=== PATIENT | female | born 1980 | race Two or more races ===

== ENCOUNTER 2017-06-26 21:55 | Emergency (ER) | payer OTHER ==
[~2017-06-26] VITALS: Ht 162.6 cm; Wt 63.5 kg
--- NOTE | 2017-06-26 22:05 | NUR ---
[employer] at bedside talking with pt.
--- NOTE | 2017-06-26 22:10 | NUR ---
pt bib RA 909 s/p wrist injury. pt aaox4. able to speak in clear sentences and able to verbalize needs. pt in no acute distress.
--- NOTE | 2017-06-26 23:55 | NUR ---
pt ambulated to bathroom and back to bed with steady gait, in no acute distress.
--- NOTE | 2017-06-27 01:30 | NUR ---
Patient is resting comfortably in bed with eyes closed, no acute distress.
--- NOTE | 2017-06-27 04:03 | NUR ---
Patient is resting comfortably in bed with eyes closed, in no acute distress
[2017-06-27 06:08] VITALS: BP 115/75
--- NOTE | 2017-06-27 06:10 | NUR ---
Patient discharged to home in stable conditon. Written and verbal after care instructions given. Patient verbalizes understanding of instructions. Patient walked out of ER with steady gait.
== END 2017-06-27 06:12 | disposition home or self-care (01) ==
LOC: ER 21:56
DX: S63.501A Unspecified sprain of right wrist, initial encounter (principal); F10.129 Alcohol abuse with intoxication, unspecified; Y08.89XA Assault by other specified means, initial encounter; Y92.89 Other specified places as the place of occurrence of the external cause; Y93.89 Activity, other specified; Y99.8 Other external cause status
CPT/HCPCS: 73110; A4663

== ENCOUNTER 2018-01-09 22:02 | Emergency (ER) | payer OTHER ==
--- NOTE | 2018-01-09 23:30 | NUR ---
CALLED FOR PT NO ANSWER LWBT
== END 2018-01-09 23:30 | disposition left against medical advice (07) ==
LOC: ER 22:04
DX: Z53.21 Procedure and treatment not carried out due to patient leaving prior to being seen by health care provider (principal)

== ENCOUNTER 2018-01-10 22:15 | Emergency (ER) | payer OTHER ==
[~2018-01-10] VITALS: Ht 162.6 cm; Wt 63.5 kg
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
[2018-01-10] MEDS ORDERED: ONDANSETRON ODT 4 MG TAB.RAPDIS SL ONE (22:30)
[2018-01-10 22:40] LABS: BASOPHILS % (AUTO) 0.7 % (0.0-2.0); EOSINOPHILS % (AUTO) 0.5 % (0.0-7.0); HEMATOCRIT 34.9 % (31.2-41.9); HEMOGLOBIN 11.8 g/dL (10.9-14.3); LYMPHOCYTES # (AUTO) 1.8 K/uL (20.0-40.0); LYMPHOCYTES % (AUTO) 42.8 % (20.5-51.5); MEAN CORPUSCULAR HEMOGLOBIN 33.4 uug (24.7-32.8); MEAN CORPUSCULAR HGB CONC 34 g/dL (32.3-35.6); MEAN CORPUSCULAR VOLUME 98.7 fL (75.5-95.3); MONOCYTES # (AUTO) 0.4 K/uL (2.0-10.0); MONOCYTES % (AUTO) 8.8 % (0.0-11.0); NEUTROPHILS % (AUTO) 47.2 % (38.5-71.5); PLATELET COUNT (AUTO) 203 K/uL (179-408); RED BLOOD CELL COUNT(AUTO) 3.54 MIL/uL (3.63-4.92); WHITE BLOOD COUNT (AUTO) 4.3 K/uL (3.8-11.8)
[2018-01-10] MEDS ORDERED: ONDANSETRON ODT 4 MG TAB.RAPDIS ONE (22:40)
[2018-01-10 22:46] LABS: *URINE HCG, QUAL NEGATIVE (NEGATIVE)
[2018-01-10 22:54] LABS: CARBON DIOXIDE 24 mmol/L (21-32); CHLORIDE 105 mmol/L (98-107); CREATININE 0.7 mg/dL (0.6-1.3); ETHANOL 351 MG/DL (0-0); GLUCOSE 104 mg/dL (74-106); POTASSIUM 3.8 mmol/L (3.5-5.1); UREA NITROGEN, BLOOD 8 mg/dL (7-18)
[2018-01-10 22:59] LABS: ALANINE AMINOTRANSFERASE 39 U/L (14-59); ALKALINE PHOSPHATASE 67 U/L (50-136); ASPARTATE AMINOTRANSFERASE 39 U/L (15-37); BILIRUBIN,DIRECT 0.1 mg/dL (0.0-0.2); BILIRUBIN,TOTAL 0.3 mg/dL (0.2-1.0); TOTAL PROTEIN, SERUM 7.1 g/dL (6.4-8.2)
[2018-01-10 23:01] LABS: ACETAMINOPHEN < 2.0 ug/mL (10-30)
[2018-01-10 23:02] LABS: *AMPHETAMINE, URINE NEGATIVE (NEGATIVE); *BARBITURATE, URINE NEGATIVE (NEGATIVE); *CANNABINOID, URINE NEGATIVE (NEGATIVE); *COCCAINE, URINE NEGATIVE (NEGATIVE); *OPIATE, URINE NEGATIVE (NEGATIVE); *PHENCYCLIDINE SCREEN,URINE NEGATIVE (NEGATIVE)
--- NOTE | 2018-01-11 00:05 | NUR ---
PATIENT SLEEPING ON GURNY IN ROOM WITH NO DISTRESS NOTED
--- NOTE | 2018-01-11 06:10 | NUR ---
PATIENT ABLE TO AMBULATE AROUND UNIT WITH STEADY GAIT. SPEAKING WITH CLEAR SPEECH. PATIENT A/OX4 AND TOLERATING PO INTAKE WITH NO N/V NOTED
--- NOTE | 2018-01-11 06:19 | NUR ---
Patient discharged to home in stable conditon. Written and verbal after care instructions given. Patient verbalizes understanding of instructions. WALKED OUT OF ER WITH STEADY GAIT WITH NO DISTRESS NOTED
[2018-01-11 06:20] VITALS: BP 120/60
== END 2018-01-11 06:23 | disposition home or self-care (01) ==
LOC: ER 22:16
DX: F10.129 Alcohol abuse with intoxication, unspecified (principal); Z59.0 Homelessness
CPT/HCPCS: 36415; 80307; 84703; 85025; A4663; G0480; G0480-TC; Q0162

== ENCOUNTER 2018-01-11 23:27 | Emergency (ER) | payer OTHER ==
--- NOTE | 2018-01-11 23:52 | NUR ---
Patient did not want to be triaged or be seen by ERMD. Patient is A/Ox3,speaking with clear speech. Came in requesting to be admitted to [facility] not to be checked into ER. Patient left with family member
== END 2018-01-11 23:54 | disposition left against medical advice (07) ==
LOC: ER 23:29
DX: Z53.21 Procedure and treatment not carried out due to patient leaving prior to being seen by health care provider (principal)

== ENCOUNTER 2018-07-17 22:45 | Inpatient (IN) | payer OTHER ==
[~2018-07-17] VITALS: Ht 160 cm; Wt 59.4 kg
--- NOTE | 2018-07-17 19:40 | NUR ---
RECEIVED PATIENT IN BED AWAKE BUT SLIGHTLY DROWSY, NO SOB NO CHEST PAIN, NO COMPLAIN OF PAIN, NO S/S OF ANXIETY AT THIS TIME. PATIENT USES PHONE TO CALL HER BOYFRIEND WITH SITTER SUPERVISION. PHONE WAS TAKEN OUT OF THE ROOM AFTER USE BY PATIENT.
--- NOTE | 2018-07-17 22:45 | NUR ---
Pt bib RA 90. Pt is ETOH and ingested 30 Librium tablets per paramedics for possible suicide attempt. Pt a/o x4 but with slurred speech. Pt is on monitor, V/S stable. Denies suicide at this time.
--- NOTE | 2018-07-17 22:45 | NUR ---
Will contine to onitor. Safe environment implemented.
[2018-07-17] MEDS ORDERED: [UNRECOGNIZED DRUG - REMARK] (22:56)
[2018-07-17] MEDS ORDERED: [UNRECOGNIZED DRUG - REMARK] (22:56)
[2018-07-17] MEDS ORDERED: CHLO25CA22 PO (23:03)
--- NOTE | 2018-07-17 23:15 | NUR ---
ONESIMO at bedside for interrogation
[2018-07-17 23:25] LABS: CARBON DIOXIDE 27 mmol/L (21-32); CHLORIDE 101 mmol/L (98-107); CREATININE 0.8 mg/dL (0.6-1.3); GLUCOSE 94 mg/dL (74-106); POTASSIUM 3.3 mmol/L (3.5-5.1); UREA NITROGEN, BLOOD 11 mg/dL (7-18)
[2018-07-17 23:30] LABS: BASOPHILS % (AUTO) 0.5 % (0.0-2.0); EOSINOPHILS % (AUTO) 0.6 % (0.0-7.0); HEMATOCRIT 40.3 % (31.2-41.9); HEMOGLOBIN 13.8 g/dL (10.9-14.3); LYMPHOCYTES # (AUTO) 1.5 K/uL (20.0-40.0); LYMPHOCYTES % (AUTO) 27.2 % (20.5-51.5); MEAN CORPUSCULAR HEMOGLOBIN 33.8 uug (24.7-32.8); MEAN CORPUSCULAR HGB CONC 34 g/dL (32.3-35.6); MEAN CORPUSCULAR VOLUME 98.9 fL (75.5-95.3); MONOCYTES # (AUTO) 0.5 K/uL (2.0-10.0); NEUTROPHILS # (AUTO) 3.4 K/uL (1.8-8.9); NEUTROPHILS % (AUTO) 62.7 % (38.5-71.5); PLATELET COUNT (AUTO) 259 K/uL (179-408); RED BLOOD CELL COUNT(AUTO) 4.08 MIL/uL (3.63-4.92); WHITE BLOOD COUNT (AUTO) 5.4 K/uL (3.8-11.8)
[2018-07-17 23:39] LABS: ACETAMINOPHEN < 2.0 ug/mL (10-30); ALANINE AMINOTRANSFERASE 65 U/L (14-59); ALKALINE PHOSPHATASE 72 U/L (50-136); ASPARTATE AMINOTRANSFERASE 62 U/L (15-37); BILIRUBIN,DIRECT 0.1 mg/dL (0.0-0.2); BILIRUBIN,TOTAL 0.4 mg/dL (0.2-1.0); TOTAL PROTEIN, SERUM 8.4 g/dL (6.4-8.2)
[2018-07-17 23:44] LABS: ETHANOL 128 MG/DL (0-0)
[2018-07-18] VITALS (8 sets, daily range): BP systolic 91–124; BP diastolic 40–76
[2018-07-18] LABS: *BILIRUBIN,URIN NEGATIVE (NEGATIVE); *BLOOD, URINE NEGATIVE (NEGATIVE); *CLARITY,URINE CLEAR (CLEAR); *COLOR,URINE STRAW (YELLOW); *KETONES,URINE NEGATIVE (NEGATIVE); *UROBILINOGEN,URINE 0.2 E.U./dl (NORMAL); LEUKOCYTE ESTERASE ,URINE NEGATIVE (NEGATIVE); NITRITE, URINE NEGATIVE (NEGATIVE); UGLUCOSE NEGATIVE (NEGATIVE)
[2018-07-18 00:02] LABS: BACTERIA,URINE NONE SEEN /HPF (NONE SEEN); RBC,URINE NONE SEEN /HPF (0-3); SQUAMOUS EPITHELIAL CELL,UR NONE SEEN /HPF (NONE SEEN); WBC,URINE NONE SEEN /HPF (0-3)
[2018-07-18] MEDS ORDERED: IV NORMAL SALINE 1000 ML BAG IV ONE (00:15)
[2018-07-18 00:19] LABS: *AMPHETAMINE, URINE POSITIVE (NEGATIVE); *BARBITURATE, URINE NEGATIVE (NEGATIVE); *CANNABINOID, URINE NEGATIVE (NEGATIVE); *COCCAINE, URINE NEGATIVE (NEGATIVE); *OPIATE, URINE NEGATIVE (NEGATIVE); *PHENCYCLIDINE SCREEN,URINE NEGATIVE (NEGATIVE)
--- NOTE | 2018-07-18 00:23 | NUR ---
Patient sleeping at this time, easily arousable via verbal and tactile stimuli. Boyfriend at bedside. Will continue to monitor closely.
[2018-07-18] MEDS: POTASSIUM CHLORIDE 50 ML IV SCH ×4 (00:44→07:04)
[2018-07-18] MEDS ORDERED: ACETAMINOPHEN 650 MG SUPP.RECT RC PRN (02:15)
[2018-07-18] MEDS ORDERED: IV D5/ 0.9% NACL 1,000 ML IV PRN (02:15)
[2018-07-18] MEDS ORDERED: INSULIN REGULAR, HUMAN 300 UNIT/3 ML VIAL SQ PRN ×2 (02:15→19:00)
[2018-07-18] MEDS ORDERED: Z GUARD REMEDY PASTE 57 GM TUBE TOP PRN (02:15)
[2018-07-18] MEDS ORDERED: MVI ADULT 10 ML VIAL=1 AMP 10 ML, FOLIC ACID 1 MG, THIAMINE HCL INJ 100 MG, MAGNESIUM S... IV PRN ×10 (02:15→10:00)
[2018-07-18] MEDS ORDERED: DEXTROSE 50% 50 ML DISP.SYRIN IV PRN ×2 (02:15→19:00)
[2018-07-18] MEDS ORDERED: ONDANSETRON 4 MG/2 ML VIAL IV PRN (02:15)
[2018-07-18] MEDS ORDERED: LORAZEPAM 2 MG/1 ML VIAL IV PRN (02:15)
--- NOTE | 2018-07-18 02:19 | NUR ---
Pt. admitted to CCU , under care of Roddy SHANNON Belongs List completed -1st bag of KCl start time: 43 end time: 137 -2nd bag of KCl start time: 138 end time: not done, continued by inpatient RN -3rd and 4th bag of KCl endorsed to and will be administered by inpatient RN
--- NOTE | 2018-07-18 02:40 | NUR ---
AT INFORMED THAT PT REFUSED TO BE HOOKED UP TO MONITOR AND PULLING OUT IV. AT BS TALKING TO PT.
--- NOTE | 2018-07-18 03:00 | NUR ---
PET TEAM HERE TO EVALUATE PT.
[2018-07-18] MEDS: LORAZEPAM 2 MG/1 ML VIAL IV PRN ×3 (05:07→21:41)
--- NOTE | 2018-07-18 06:00 | NUR ---
AGREED TO HAVE IV STARTED AFTER ALL, PLEASANT AND COOPERTIVE, ALLOWED HER TO VOICE ANY CONCERNS.SEEMED MUCH MORE AT EASE.IS AWARE THAT SHE DESERVES AND NEEDS TO GET SOME HELP.
[2018-07-18 06:01] LABS: BASOPHILS % (AUTO) 0.6 % (0.0-2.0); EOSINOPHILS # (AUTO) 0.1 K/uL (0.0-0.7); EOSINOPHILS % (AUTO) 1.2 % (0.0-7.0); HEMATOCRIT 36.5 % (31.2-41.9); HEMOGLOBIN 12.6 g/dL (10.9-14.3); LYMPHOCYTES # (AUTO) 1.4 K/uL (20.0-40.0); LYMPHOCYTES % (AUTO) 33.3 % (20.5-51.5); MEAN CORPUSCULAR HEMOGLOBIN 34.5 uug (24.7-32.8); MEAN CORPUSCULAR HGB CONC 35 g/dL (32.3-35.6); MEAN CORPUSCULAR VOLUME 99.7 fL (75.5-95.3); MONOCYTES # (AUTO) 0.4 K/uL (2.0-10.0); MONOCYTES % (AUTO) 8.7 % (0.0-11.0); NEUTROPHILS # (AUTO) 2.4 K/uL (1.8-8.9); NEUTROPHILS % (AUTO) 56.2 % (38.5-71.5); PLATELET COUNT (AUTO) 231 K/uL (179-408); RED BLOOD CELL COUNT(AUTO) 3.66 MIL/uL (3.63-4.92); WHITE BLOOD COUNT (AUTO) 4.2 K/uL (3.8-11.8)
[2018-07-18 06:16] LABS: BILIRUBIN,TOTAL 0.2 mg/dL (0.2-1.0); CREATININE 0.8 mg/dL (0.6-1.3); PHOSPHOROUS 3.1 mg/dL (2.5-4.9); POTASSIUM 3.6 mmol/L (3.5-5.1); TOTAL PROTEIN, SERUM 6.7 g/dL (6.4-8.2)
[2018-07-18 06:20] LABS: THYROID STIMULATING HORMONE 67.689 mIU/mL (0.358-3.740)
[2018-07-18] MEDS: BLOOD SUGAR DIAGNOSTIC 1 EACH STRIP VI SCH ×4 (06:56→23:38)
[2018-07-18] MEDS: PANTOPRAZOLE SODIUM 40 MG VIAL IV SCH (08:08)
[2018-07-18] MEDS ORDERED: MAGNESIUM SULFATE/D5W 100 ML IV SCH (12:00)
[2018-07-18] MEDS ORDERED: LEVOTHYROXINE SODIUM 100 MCG VIAL IV ONE (12:26)
[2018-07-18] MEDS ORDERED: THIAMINE HCL INJ 100 MG in IV DEXTROSE 5% 50 ML IV SCH (13:00)
[2018-07-18] MEDS ORDERED: MVI ADULT 10 ML VIAL=1 AMP 10 ML in IV D5/ 0.9% NACL 1,000 ML IV PRN (14:00)
[2018-07-18] MEDS ORDERED: FOLIC ACID 1 MG in IV DEXTROSE 5% 50 ML IV SCH (14:00)
--- NOTE | 2018-07-18 16:17 | NUR ---
Dr. Garcia here to see pt. Full report given. stated that pt okay to downgrade to telemetry status.
--- NOTE | 2018-07-18 18:23 | NUR ---
Full SBAR report given to CONG Valdovinos.
--- NOTE | 2018-07-18 18:35 | NUR ---
Transferred pt to room 209-T with 1:1 sitter via wheelchair. All belongings reviewed and brought with the pt. Pt stable and nad noted upon transfer.
--- NOTE | 2018-07-18 18:36 | NUR ---
RECEIVED PATIENT FROM CCU 38 YEARS OLD FEMALE BY W/CHAIR TO ROOM 209 PLACED INTO BED FIXWS AND MDE COMFORTABLE PATIENT IS ALERT AND ORIENTED AT THIS TIME ABLE TO AMBULATE TO THE BATHROOM TO VOID.HEPLOCK ON HER LEFT AC REMAINS INTACT RECONNECTED TO THE IVF BABANA BAG ORDERED.ALERT AND ORIENTED ABLE TO VERBALLY RESPOND DID NOT VERBALISE SUICIDAL INTENT AT THIS TIME HAS A SITTER AT HER BEDSIDE FOR SAFETY WILL CONTINUE TO PROVIDE SAFE AND THERAPEUTIC ENVIRONMENT AT ALL TIMES.
[2018-07-18] MEDS ORDERED: QUETIAPINE FUMARATE 25 MG TABLET PO SCH (21:00)
--- NOTE | 2018-07-18 21:41 | NUR ---
PATIENT AWAKE, NOTED WITH ANXIETY EPISODES, RESTLESS WHILE IN BED, PATIENT HAS MULTIPLE REQUEST, TRIED TO ATTEND ALL NEEDS, WANTED HER PAJAMAS BUT TOLD PATIENT THAT SHE CANNOT HAVE IT DUE TO DRAW STRINGS ON ITS WAIST AREA AND STRINGS CANNOT BE REMOVED, GIVEN PANTS WITH ELASTIC WAIST BAND. PATIENT COMPLAIN OF STIFF MUSCLE ON BACK AND WANTED TO RELAX, GIVEN ATIVAN FOR ANXIETY. WITH NO ADVERSE REACTION NOTED, CONT ON 1;1 SITTER FOR SAFETY.
[2018-07-18] MEDS: HYDROCODONE/APAP 5-325MG TABLET PO PRN (23:34)
--- NOTE | 2018-07-18 23:40 | NUR ---
PATIENT COMPLAIN OF GEN BODY PAIN, AND TRIED TO GIVE NARCO PATIENT REFUSED THE MEDICATION, PATIENT WENT BACK TO BED, WILL CONT TO MONITOR.
[2018-07-19 00:17] VITALS: BP 107/61
--- NOTE | 2018-07-19 04:37 | NUR ---
PATIENT SLEPT FOR 10 HRS, NO SOB NO CHEST PAIN, TELE MONITOR SINUS RHYTHM, ASSISTED WITH TOILETING, VOIDING WELL, NO CHEST CONGESTION NOTED, PATIENT BELONGINGS WAS PLACE ON CONTRABAND LOCKER, PATIENT ATE AND DRINK FAIRLY, NO FURTHER EPISODE OF ANXIETY NOTED, NO SEIZURE ACTIVITY NOTED, CONT ON 1;1 SITTER FOR SAFETY.
[2018-07-19 05:39] LABS: BASOPHILS % (AUTO) 0.5 % (0.0-2.0); EOSINOPHILS % (AUTO) 0.8 % (0.0-7.0); HEMATOCRIT 37.4 % (31.2-41.9); HEMOGLOBIN 12.7 g/dL (10.9-14.3); LYMPHOCYTES # (AUTO) 1.2 K/uL (20.0-40.0); LYMPHOCYTES % (AUTO) 23.3 % (20.5-51.5); MEAN CORPUSCULAR HEMOGLOBIN 33.9 uug (24.7-32.8); MEAN CORPUSCULAR HGB CONC 34 g/dL (32.3-35.6); MEAN CORPUSCULAR VOLUME 99.4 fL (75.5-95.3); MONOCYTES # (AUTO) 0.4 K/uL (2.0-10.0); MONOCYTES % (AUTO) 7.9 % (0.0-11.0); NEUTROPHILS # (AUTO) 3.4 K/uL (1.8-8.9); NEUTROPHILS % (AUTO) 67.5 % (38.5-71.5); PLATELET COUNT (AUTO) 213 K/uL (179-408); RED BLOOD CELL COUNT(AUTO) 3.76 MIL/uL (3.63-4.92)
[2018-07-19] MEDS: BLOOD SUGAR DIAGNOSTIC 1 EACH STRIP VI SCH ×2 (05:43→11:38)
[2018-07-19 05:50] VITALS: BP 96/67
[2018-07-19 05:54] LABS: BILIRUBIN,TOTAL 0.4 mg/dL (0.2-1.0); CREATININE 0.9 mg/dL (0.6-1.3); MAGNESIUM 2.2 mg/dL (1.8-2.4); PHOSPHOROUS 3.4 mg/dL (2.5-4.9); POTASSIUM 3.8 mmol/L (3.5-5.1); TOTAL PROTEIN, SERUM 6.2 g/dL (6.4-8.2)
[2018-07-19 06:04] LABS: THYROID STIMULATING HORMONE 78.038 mIU/mL (0.358-3.740)
--- NOTE | 2018-07-19 07:33 | NUR ---
RECEIVED PATIENT AWAKE ALERT AND ORIENTED DENIES PAIN OR DISCOMFORTS AT THIS TIME ALSO DENIES FEELIN SUICIDAL STATED TO ME THAT SHE SLEPT WELL LAST NITE REMAIN ON IVF ORDERED WITH NO S/S OF INFILTERATION ON SITE REMAIN ON HOLD WITH A ONE ON ONE SITTER FOR SAFETY WILL CONTINUE TO PROVIDE SAFE AND THERAPEUTIC ENVIRONMENT AT ALL TIMES.
[2018-07-19] MEDS: PANTOPRAZOLE SODIUM 40 MG VIAL IV SCH (08:03)
[2018-07-19] MEDS: FOLIC ACID 1 MG TABLET PO SCH (09:55)
[2018-07-19] MEDS: THIAMINE HCL 100 MG TABLET PO SCH (09:55)
[2018-07-19] MEDS: LEVOTHYROXINE SODIUM 50 MCG TABLET PO SCH (11:38)
[2018-07-19] MEDS ORDERED: LEVOTHYROXINE SODIUM 100 MCG VIAL IV ONE (11:45)
[2018-07-19 12:00] VITALS: BP 105/76
--- NOTE | 2018-07-19 12:15 | NUR ---
PATIENT DOES NOT WANT HER BLOOD SUGAR CHECKED ANYMORE BUT ALLOWED ME TO CHECK IT THIS LAST TIME SO I INFORMED DR LIMA WITH ORDERS TO STOP BLOOD SUGAR CHECKS AND INSULIN COVERAGE AND NOTED.
--- NOTE | 2018-07-19 14:20 | NUR ---
PATIENT SEEN AND EXAMINED BY DR RADFORD AND DR VELEZ WITH NO NEW ORDERS AT THIS TIME PATIENT REMAINS ON HOLD ORDERED WITH SAFETY PROVIDED WILL CONTINUE TO PROVIDE SAFE AND THERAPEUTIC ENVIRONMENT AT ALL TIMES.
[2018-07-19 16:00] VITALS: BP 110/67
[2018-07-19] MEDS: LORAZEPAM 2 MG/1 ML VIAL IV PRN (18:02)
--- NOTE | 2018-07-19 18:02 | NUR ---
PATIENT IS AT HER BREAKING POINT STATED FEEL VERY ANXIOUS AND SAD MEDICATED WITH ATIVAN ORDERED PATIENT STATED DOES NOT WANT TO BE HERE STATED SHE DOES NOT FEEL TAKEN CARED OF PATIENT REASSURED JAKI GUERRERO HAS A ONE ON ONE SITTER FOR HER SAFETY AND NEEDS AND HER BOY FRIEND HAS BEEN AT HER BEDSIDE FOR MORE THAT 5 HOURS TODAY AND IS STILL HERE.
--- NOTE | 2018-07-19 19:03 | NUR ---
PATIENT STATED FEELING BETTER AFTER TRICIA ATIVAN SHE IOS SMILING NOW AND IN BETTER SPIRITS WILL CONTINUE TO OBSERVE.
--- NOTE | 2018-07-19 19:20 | NUR ---
RECEIVED PT AWAKE, ALERT AND ORIENTEDX4. BOYFRIEND AT BEDSIDE. SITTER AT BEDSIDE FOR SAFETY. PT SHOWS NO SIGNS OF DISTRESS. IV INTACT. SAFETY AND COMFORT PROVIDED. WILL CONTINUE TO MONITOR.
[2018-07-19 20:14] VITALS: BP 106/78
[2018-07-19] MEDS ORDERED: QUETIAPINE FUMARATE 25 MG TABLET PO SCH (21:00)
[2018-07-20 00:03] VITALS: BP 121/66
[2018-07-20] MEDS: PANTOPRAZOLE SODIUM 40 MG TABLET.DR PO SCH (06:07)
[2018-07-20] MEDS: LEVOTHYROXINE SODIUM 50 MCG TABLET PO SCH (06:08)
[2018-07-20 06:34] LABS: BASOPHILS % (AUTO) 0.3 % (0.0-2.0); EOSINOPHILS % (AUTO) 0.6 % (0.0-7.0); HEMATOCRIT 37.8 % (31.2-41.9); HEMOGLOBIN 12.7 g/dL (10.9-14.3); LYMPHOCYTES # (AUTO) 1.6 K/uL (20.0-40.0); LYMPHOCYTES % (AUTO) 32.4 % (20.5-51.5); MEAN CORPUSCULAR HEMOGLOBIN 33.5 uug (24.7-32.8); MEAN CORPUSCULAR HGB CONC 34 g/dL (32.3-35.6); MEAN CORPUSCULAR VOLUME 99.5 fL (75.5-95.3); MONOCYTES # (AUTO) 0.6 K/uL (2.0-10.0); MONOCYTES % (AUTO) 12.1 % (0.0-11.0); NEUTROPHILS # (AUTO) 2.7 K/uL (1.8-8.9); NEUTROPHILS % (AUTO) 54.6 % (38.5-71.5); PLATELET COUNT (AUTO) 216 K/uL (179-408); WHITE BLOOD COUNT (AUTO) 4.9 K/uL (3.8-11.8)
--- NOTE | 2018-07-20 06:54 | NUR ---
PT SLEPT 3 HOURS. PT SHOWS NO SIGNS OF DISTRESS. SITTER AT BEDSIDE FOR SAFETY. PRESCRIBED MEDICATION GIVEN AND PT TOLERATED IT WELL.SAFETY AND COMFORT PROVIDED. WILL ENDORSE TO INCOMING NURSE FOR CONTINUITY OF CARE.
[2018-07-20 07:01] LABS: CREATININE 0.8 mg/dL (0.6-1.3); MAGNESIUM 2.2 mg/dL (1.8-2.4); PHOSPHOROUS 2.7 mg/dL (2.5-4.9); POTASSIUM 3.6 mmol/L (3.5-5.1)
--- NOTE | 2018-07-20 07:25 | NUR ---
RECEIVED PATIENT AWAKE ALERT DENIES PAIN OR DISCOMFORTS AT THIS TIME REMAIN ON ONE ON ONE SITTER FOR SAFETY DENIES SI AT THIS TIME WILL CONTINUE TO PROVIDE SAFE AND THERAPEUTIC ENVIRONMENT AT ALL TIMES
[2018-07-20] MEDS: MULTIVITAMINS,THERAPEUTIC TABLET PO SCH (08:41)
[2018-07-20] MEDS: THIAMINE HCL 100 MG TABLET PO SCH (08:41)
[2018-07-20] MEDS: FOLIC ACID 1 MG TABLET PO SCH (08:41)
[2018-07-20] MEDS ORDERED: QUETIAPINE FUMARATE 25 MG TABLET PO SCH ×2 (09:00→21:00)
--- NOTE | 2018-07-20 09:26 | NUR ---
PATIENT STATED WANTS TO SHOWER HAS TELE MD NOTIFIED STATED OK FOR PATIENT TO SHOWER AND TO DISCONTINUE TELE AND NOTED
[2018-07-20 10:21] VITALS: BP 105/48
[2018-07-20] MEDS: LORAZEPAM 2 MG/1 ML VIAL IV PRN ×2 (10:21→20:24)
[2018-07-20 11:30] VITALS: BP 126/63
--- NOTE | 2018-07-20 12:03 | NUR ---
DR RADFORD HERE TO SEE PATIENT WITH NEW ORDERS AND NOTED.
[2018-07-20] MEDS: DIVALPROEX 250 MG TABLET.DR PO SCH ×2 (12:15→16:26)
--- NOTE | 2018-07-20 14:30 | NUR ---
RESULTS FOR TSH IS [phone] RADFORD AND ALSO DR VELEZ WAS NOTIFIED WITH NO NEW ORDERS AT THIS TIME
[2018-07-20 15:59] VITALS: BP 122/70
[2018-07-20] MEDS: QUETIAPINE FUMARATE 25 MG TABLET PO SCH (16:27)
--- NOTE | 2018-07-20 17:19 | NUR ---
PER THE CLAY ROASTER NURSERY WORKER NO PLACEMENT AT THIS TIME.
--- NOTE | 2018-07-20 19:20 | NUR ---
Received patient awake in bed, not in any form of distress. Patient is alert and oriented x 4 and ambulatory. Patient has an IV access at the right antecubital vein, 20g to saline lock, patent and intact. Noted patient has a sitter at the bedside and is on 14day hold. Will continue to monitor.
[2018-07-20 20:16] VITALS: BP 111/69
[2018-07-20] MEDS ORDERED: QUETIAPINE FUMARATE 100 MG TABLET PO SCH (21:00)
[2018-07-20] MEDS ORDERED: QUETIAPINE FUMARATE 25 MG TABLET PO PRN (21:45)
[2018-07-20] MEDS ORDERED: LORAZEPAM 2 MG/1 ML VIAL IV ONE (21:45)
--- NOTE | 2018-07-20 22:00 | NUR ---
Noted patient had shoe laces in her room, which was taken and stored in contraband items locker in the unit.
--- NOTE | 2018-07-20 22:00 | NUR ---
Informed patient that her fiance cannot stay overnight per hospital policy, patient became upset with this because she claims she was informed this morning that her fiance can stay overnight. Reiterated that per casino cage supervisor we need to follow hospital policy. Patient became agitated and is verbalizing that she will leave the hospital. Called and spoke with Dr. Stevens and relayed above events, she ordered for 1 more dose of Ativan 1mg IV and seroquel 25mg po prn - noted and ordered.
--- NOTE | 2018-07-20 23:00 | NUR ---
Patient fell asleep. Bed in low position, side rails up x 2, call light within reach, bed alarm on. Sitter present at bedside. Will continue to monitor.
--- NOTE | 2018-07-21 06:21 | NUR ---
Patient slept 7 hours and 15 minutes. She still has an IV access at left antecubital vein. No recurrence of agitation. Attended all needs. Still has a sitter at bedside. Ensured safety and comfort.
[2018-07-21] MEDS: LEVOTHYROXINE SODIUM 100 MCG TABLET PO SCH (06:32)
[2018-07-21] MEDS: PANTOPRAZOLE SODIUM 40 MG TABLET.DR PO SCH (06:32)
[2018-07-21 06:40] VITALS: BP 86/53
[2018-07-21 07:10] VITALS: BP 110/52
--- NOTE | 2018-07-21 07:30 | NUR ---
PATIENT RECEIVED AWAKE ALERT ORIENTED SEEMS TO BE IN GOOD SPIRITS DENIES SUICIDAL INTENT.PATIENT HAS A SITTER FOR SAFETY.WILL CONTINUE TO OBSERVE AND PROVIDE SAFE AND THERAPEUTIC ENVIRONMENT AT ALL TIMES.
[2018-07-21] MEDS: CYANOCOBALAMIN 1,000 MCG TABLET PO SCH (08:28)
[2018-07-21] MEDS: LORAZEPAM 2 MG/1 ML VIAL IV PRN (08:28)
--- NOTE | 2018-07-21 08:28 | NUR ---
PATIENT IS GETTING VERY AGITATED AND RESTLESS REQUESTING FOR ATIVAN ADMINISTERED ORDERED PATIENT MADE COMFORTABLE NO SUICIDE INTENT AT THIS TIME.
[2018-07-21] MEDS: THIAMINE HCL 100 MG TABLET PO SCH (08:29)
[2018-07-21] MEDS: QUETIAPINE FUMARATE 25 MG TABLET PO SCH ×2 (08:29→16:04)
[2018-07-21] MEDS: DIVALPROEX 250 MG TABLET.DR PO SCH ×3 (08:29→16:04)
[2018-07-21] MEDS: FOLIC ACID 1 MG TABLET PO SCH (08:29)
[2018-07-21] MEDS: MULTIVITAMINS,THERAPEUTIC TABLET PO SCH (08:29)
--- NOTE | 2018-07-21 10:51 | NUR ---
PATIENT REQUESTED ME TO REMOVE HER IV HEPLOCK STATED THAT IT WAS BOTHERING HER SO IV SITE REMOVED AND PATIENT REFUSED TO HAVE A NEW ONE INSERTED OTIS SUPERINTENDENT SANITATION AWARE THAT PATIENT HAS NO IV SITE AT THIS TIME STATED OKAY TO USE OTHER ROUTE WHEN GIVING HER ATIVAN AWAITING FOR ORDERS.
[2018-07-21 11:00] VITALS: BP 109/53
--- NOTE | 2018-07-21 12:00 | NUR ---
DR RADFORD HERE TO SEE PATIENT AND PATIENT VERY UPSET THAT SHE WAS NOT RELEASING HER HOLD AND LETTING HER GO PER THE VEGETABLE TESTER THERE WAS AN INCIDENT WHERE PATIENT WAS VERY AGITATED ANXIOUS AND MADE REFERENCE THAT SHE WILL JUST GO AHEAD AND END THIS AND HAD THE CALL LIGHT SYSTEM IN HER HAND THIS WAS RELAYED TO THE PSYCHIATRIST PATIENT DENIED STATING OR MAKING ANY REFERENCE TO KILLING OR INJURING HERSELF VERY UPSET DEPRESSED LOW ENERGY WANTS TO BE ALLOWED TO GO HOME BUT DESTINATION IS STILL UNKNOWN.PATIENT REASSURED THAT THE COURTS WILL BE ABLE TO ACCESS AND DETERMINE IF THE HOLD STANDS OR NOT WILL CONTINUE TO OBSERVE PATIENT AND PROVIDE SAFE AND THERAPEUTIC ENVIRONMENT AT ALL TIMES
[2018-07-21] MEDS: ACETAMINOPHEN 325 MG TABLET PO PRN (15:07)
[2018-07-21 16:00] VITALS: BP 112/42
--- NOTE | 2018-07-21 16:51 | NUR ---
Social Work Note: Met with patient today who acknowledged she was anxious as she cannot drink here. She said that she had an argument with her mother and sisters and then went on an alcoholic binge. She is denying any current wish to harm herself. She admits to negative attention-seeking behavior and added " that is all I know how to do." She was in [facility] four years ago. She says her boyfriend visited last night and staff report she got very angry when they refused to allow him to stay the night. Call light cord was broken but client denies breaking this and added " I have no way of doing this." She admits she is not ready to stop drinking. She overdosed on Librium after she argued with her mother and sisters. She is upset that her relationship with her mother is conflictual but then owns that she created the rift. She admits she acts on her impulses and when she said " I will go and finish what I started" she was angry. Pt. says she was supposed to call [facility] but did not follow through. Patient was appreciative of supportive intervention offered by this mortgage or loan underwriter. Will await probable cause hearing as no accepting inpatient psychiatric facility will take her with probable cause hearing. No probable cause hearing date per Nick charge nurse. Courts were closed yesterday so no hearing date has been set as of time of writing.
--- NOTE | 2018-07-21 18:33 | NUR ---
RESTING IN BED SEEMS TO BE IN GOOD SPIRITS AT THIS TIME COMPLIANT WITH MEDICATIONS DENIES SUICIDAL THOUGHTS WILL CONTINUE TO OBSERVE AND PROVIDE SAFE AND THERAPEUTIC ENVIRONMENT AT ALL TIMES PATIENT CONTINUE TO BE ON ONE ON ONE SITTER OBSERVATION ON 14 DAY HOLD.
--- NOTE | 2018-07-21 19:25 | NUR ---
Received patient awake in bed, not in any form of distress. Patient is alert and oriented x 4 and ambulatory. Noted patient has a sitter at the bedside and is on 14day hold. Patient has visitor at bedside at this time. Patient appears calm and is cooperative at this time. Will continue to monitor.
[2018-07-21 20:05] VITALS: BP 113/63
[2018-07-21] MEDS ORDERED: QUETIAPINE FUMARATE 100 MG TABLET PO SCH (21:00)
--- NOTE | 2018-07-22 | NUR ---
Patient had a shower assisted by lizett. Patient states she does not feel sleepy at all and that she is still feeling a little bit anxious. Will administer Ativan 1mg prn dose.
[2018-07-22] MEDS: LORAZEPAM 1 MG TABLET PO PRN ×2 (00:15→14:17)
--- NOTE | 2018-07-22 01:30 | NUR ---
Noted patient stated that she feels sleepy but continues to talk and work around her room. Settled patient in the bed, noise and lights subdued to provide calming environment.
--- NOTE | 2018-07-22 02:30 | NUR ---
Noted patient still not asleep even after ativan prn dose. Patient states that she feels that she needs to move around still in her room. Will give seroquel prn dose.
--- NOTE | 2018-07-22 04:50 | NUR ---
Patient fell asleep. Continued to keep noise and lights subdued to provide calm environment.
[2018-07-22 06:00] VITALS: BP 100/58
--- NOTE | 2018-07-22 06:21 | NUR ---
Patient still currently asleep with the sitter at the bedside. Noted patient fell asleep just this morning, will await for her to wake up for the morning medications. If patient does not wake up yet, will endorse to morning shift nurse. Will continue to monitor.
[2018-07-22] MEDS: LEVOTHYROXINE SODIUM 100 MCG TABLET PO SCH (06:45)
[2018-07-22] MEDS: PANTOPRAZOLE SODIUM 40 MG TABLET.DR PO SCH (06:45)
[2018-07-22 07:10] VITALS: BP 113/50
[2018-07-22] MEDS: CYANOCOBALAMIN 1,000 MCG TABLET PO SCH (08:31)
[2018-07-22] MEDS: FOLIC ACID 1 MG TABLET PO SCH (08:31)
[2018-07-22] MEDS: DIVALPROEX 250 MG TABLET.DR PO SCH ×3 (08:32→16:31)
[2018-07-22] MEDS: THIAMINE HCL 100 MG TABLET PO SCH (08:32)
[2018-07-22] MEDS: QUETIAPINE FUMARATE 25 MG TABLET PO SCH ×2 (08:32→16:31)
[2018-07-22] MEDS: MULTIVITAMINS,THERAPEUTIC TABLET PO SCH (08:32)
[2018-07-22 09:29] LABS: BASOPHILS % (AUTO) 0.5 % (0.0-2.0); EOSINOPHILS % (AUTO) 0.8 % (0.0-7.0); HEMOGLOBIN 13.1 g/dL (10.9-14.3); LYMPHOCYTES # (AUTO) 1.8 K/uL (20.0-40.0); MEAN CORPUSCULAR HEMOGLOBIN 33.3 uug (24.7-32.8); MEAN CORPUSCULAR HGB CONC 34 g/dL (32.3-35.6); MEAN CORPUSCULAR VOLUME 99.5 fL (75.5-95.3); MONOCYTES # (AUTO) 0.8 K/uL (2.0-10.0); MONOCYTES % (AUTO) 13.4 % (0.0-11.0); NEUTROPHILS # (AUTO) 3.3 K/uL (1.8-8.9); NEUTROPHILS % (AUTO) 55.3 % (38.5-71.5); PLATELET COUNT (AUTO) 249 K/uL (179-408); POTASSIUM 3.3 mmol/L (3.5-5.1); RED BLOOD CELL COUNT(AUTO) 3.92 MIL/uL (3.63-4.92); WHITE BLOOD COUNT (AUTO) 5.9 K/uL (3.8-11.8)
[2018-07-22] MEDS ORDERED: POTASSIUM CHLORIDE 20 MEQ TAB.PRT.SR PO ONE (11:30)
[2018-07-22] MEDS: NICOTINE 14 MG/24HR PATCH TD SCH (13:17)
--- NOTE | 2018-07-22 14:32 | NUR ---
Received patient awake in stable condition. no behavioral problem noted. Patient seen and examined by MD Stevens with ordered nicotine patch for smoking cessation and urine for drug test. observe anxiety at this time, verbalize she will go out to talk to rn case manager hospice several times. brought her things with her, trying to go out from her door. ativan 1mg given with good effect. will continue monitor
[2018-07-22 15:54] VITALS: BP 112/71
[2018-07-22 17:34] LABS: *AMPHETAMINE, URINE POSITIVE (NEGATIVE); *BARBITURATE, URINE NEGATIVE (NEGATIVE); *CANNABINOID, URINE NEGATIVE (NEGATIVE); *COCCAINE, URINE NEGATIVE (NEGATIVE); *OPIATE, URINE NEGATIVE (NEGATIVE); *PHENCYCLIDINE SCREEN,URINE NEGATIVE (NEGATIVE)
--- NOTE | 2018-07-22 19:20 | NUR ---
RECEIVED PATIENT IN BED, NO SOB NO CHEST PAIN, BOYFRIEND AT BEDSIDE, NO ANXIETY EPISODE NOTED AT THIS TIME. CONT ON 1;1 SITTER FOR SAFETY, PATIENT CALM
[2018-07-22 20:00] VITALS: BP 115/49
[2018-07-22] MEDS ORDERED: QUETIAPINE FUMARATE 100 MG TABLET PO SCH (21:00)
--- NOTE | 2018-07-23 01:00 | NUR ---
PATIENT AWAKE, ENCOURAGE PATIENT TO GO TO BED AND TRY TO GET SOME SLEEP. PATIENT HAS NO ANXIETY BUT TOO OCCUPIED WITH ORGANIZING HER CLOTHING, AND COSMETICS. INSTRUCTED SITTER TO MONITOR PATIENT CLOSELY NOT TO HARM HERSELF. PATIENT SHOWS NO SIGNS OF HURTING HER SELF, PATIENT SAID THAT SHE "OCD" AND WANTED HER PERSONAL STUFF ORGANIZE. OFFER TO TAKE OTHER MEDS. WILL CONT TO MONITOR.
[2018-07-23 04:00] VITALS: BP 97/63
--- NOTE | 2018-07-23 05:38 | NUR ---
PATIENT AWAKE, SLEPT FOR 2 HOURS ONLY, GIVEN HER SEROQUEL AT NIGHT. PATIENT STAY IN BED, BUT TOO EXCITED ABOUT THE VIDEO CONFERENCE TODAY. CONT ON 1;1 SITTER FOR SAFETY. CONT TO MONITOR.
[2018-07-23] MEDS: LORAZEPAM 1 MG TABLET PO PRN ×2 (05:54→10:45)
[2018-07-23] MEDS: PANTOPRAZOLE SODIUM 40 MG TABLET.DR PO SCH (05:59)
[2018-07-23 06:52] LABS: BASOPHILS % (AUTO) 0.5 % (0.0-2.0); EOSINOPHILS % (AUTO) 0.7 % (0.0-7.0); HEMATOCRIT 40.6 % (31.2-41.9); HEMOGLOBIN 13.7 g/dL (10.9-14.3); LYMPHOCYTES # (AUTO) 1.4 K/uL (20.0-40.0); LYMPHOCYTES % (AUTO) 30.8 % (20.5-51.5); MEAN CORPUSCULAR HEMOGLOBIN 33.6 uug (24.7-32.8); MEAN CORPUSCULAR HGB CONC 34 g/dL (32.3-35.6); MEAN CORPUSCULAR VOLUME 99.7 fL (75.5-95.3); MONOCYTES # (AUTO) 0.6 K/uL (2.0-10.0); MONOCYTES % (AUTO) 12.3 % (0.0-11.0); NEUTROPHILS # (AUTO) 2.5 K/uL (1.8-8.9); NEUTROPHILS % (AUTO) 55.7 % (38.5-71.5); PLATELET COUNT (AUTO) 276 K/uL (179-408); RED BLOOD CELL COUNT(AUTO) 4.07 MIL/uL (3.63-4.92); WHITE BLOOD COUNT (AUTO) 4.6 K/uL (3.8-11.8)
[2018-07-23 07:03] LABS: CREATININE 1.1 mg/dL (0.6-1.3); POTASSIUM 3.8 mmol/L (3.5-5.1)
[2018-07-23 08:00] VITALS: BP 113/44
--- NOTE | 2018-07-23 08:00 | NUR ---
Received patient, awake, alert x3. No IV present. With 1:1 sitter at bedside. Stable, not in any form of distress. Calm and pleasant upon approach. Will continue to monitor.
--- NOTE | 2018-07-23 08:30 | NUR ---
Received patient, awake, alert x4. Not in any fm of distress. On 14 day hold up to 08/03/18. No suicidal ideations noted, no verbalizations of wanting to kill herself. Pleasant on approach. With 1:1 sitter at bedside.
[2018-07-23] MEDS: QUETIAPINE FUMARATE 25 MG TABLET PO SCH ×2 (08:49→17:39)
[2018-07-23] MEDS: DIVALPROEX 250 MG TABLET.DR PO SCH ×3 (08:49→17:39)
[2018-07-23] MEDS: CYANOCOBALAMIN 1,000 MCG TABLET PO SCH (08:49)
[2018-07-23] MEDS: MULTIVITAMINS,THERAPEUTIC TABLET PO SCH (08:49)
[2018-07-23] MEDS: FOLIC ACID 1 MG TABLET PO SCH (08:49)
[2018-07-23] MEDS: NICOTINE 14 MG/24HR PATCH TD SCH (08:50)
[2018-07-23] MEDS: THIAMINE HCL 100 MG TABLET PO SCH (08:50)
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
--- NOTE | 2018-07-23 11:20 | NUR ---
Patient agitated, and attempting to leave with some disorientation. Informed Dr Stevens and ordered Zyprexa %mg IM.
[2018-07-23] MEDS ORDERED: OLANZAPINE 10 MG VIAL IM ONE (11:30)
--- NOTE | 2018-07-23 11:30 | NUR ---
PT IS TEARFUL, AGITATED, YELLING, CURSING. ATTEMPTING TO ELOPE. STANDING AT ELEVATOR DOORS WITH SECURITY AND STAFF PRESENT. "I JUST NEED FRESH AIR, ALL THESE ASSHOLES IN HERE ARE DISRESPECTING ME AND ITS NOT RIGHT. DR RADFORD WOULDNT EVEN TALK TO ME, SHE JUST WALKED AWAY FROM ME. I KNOW I AM NOT SUPPOSED TO LEAVE, BUT DONT GIVE A SHIT IF I GET ARRESTED. IT WOULD BE WORTH IT FOR 30 SECONDS OF FRESH AIR. AT THIS POINT IM NOT EVEN SURE IF IM HAPPY I DIDN'T WHEN I OVER DOSED. MAYBE LIFE IS NOT WORTH IT IF THIS IS WHAT I HAVE TO LOOK FORWARD TO. WHO KNOWS WHAT WILL HAPPEN IF I GO OUTSIDE, MAYBE I WOULD JUST NOT COME BACK AT ALL SO I WOULDNT HAVE TO DEAL WITH LIFE." STAFF WAS ABLE TO VERBALLY DE ESCALATE PT AND WENT BACK TO PT ROOM. PT CONTINUES TO MAKE VAGUE SUICIDAL STATEMENTS, BUT DENIES PLAN. PT DOES CONTRACT FOR SAFETY. 1:1 REMAINS AT SIDE AT ALL TIMES. ZYPREXA 5MG IM GIVEN PER MD ORDERS. WILL CONTINUE TO MONITOR FOR SAFETY.
[2018-07-23 16:00] VITALS: BP 107/73
--- NOTE | 2018-07-23 18:49 | NUR ---
Patient was calm throughout the afternoon, no agitation noted. No suicidal ideations noted. Was compliant with medications and treatment. Still with 1:1 sitter at bedside.
[2018-07-23 19:00] VITALS: BP 98/53
[2018-07-23] MEDS: QUETIAPINE FUMARATE 100 MG TABLET PO SCH (20:26)
[2018-07-24 06:00] VITALS: BP 90/45
[2018-07-24] MEDS: LEVOTHYROXINE SODIUM 125 MCG TABLET PO SCH ×2 (06:05→06:19)
[2018-07-24] MEDS: PANTOPRAZOLE SODIUM 40 MG TABLET.DR PO SCH ×2 (06:05→06:18)
--- NOTE | 2018-07-24 06:53 | NUR ---
PATIENT ASLEEP IN BED. EASILY AROUSABLE. SLEPT WELL. PATIENTS BLOOD PRESSURE 90/45. ALL OTHER VSS. SITTER AT BEDSIDE FOR SAFETY. ALL NEEDS ATTENDED. WILL CONTINUE TO MONITOR.
[2018-07-24] MEDS ORDERED: LEVOTHYROXINE SODIUM 100 MCG TABLET PO SCH (07:00)
--- NOTE | 2018-07-24 07:22 | NUR ---
patient resting comfortably in bed at this time. no signs of distress. 1:1 sitter at bedside for safety. safety measures implemented. Patient is SI, materials removed from room that may pose a suicidal risk for patient. Reorientation will be provided throughout shift as needed. will continue to monitor throughout shift.
[2018-07-24] MEDS: NICOTINE 14 MG/24HR PATCH TD SCH (08:13)
[2018-07-24] MEDS: MULTIVITAMINS,THERAPEUTIC TABLET PO SCH (08:15)
[2018-07-24] MEDS: THIAMINE HCL 100 MG TABLET PO SCH (08:15)
[2018-07-24] MEDS: DIVALPROEX 250 MG TABLET.DR PO SCH ×3 (08:15→16:27)
[2018-07-24] MEDS: QUETIAPINE FUMARATE 25 MG TABLET PO SCH ×2 (08:16→16:27)
[2018-07-24] MEDS: FOLIC ACID 1 MG TABLET PO SCH (08:16)
[2018-07-24] MEDS: CYANOCOBALAMIN 1,000 MCG TABLET PO SCH (08:16)
--- NOTE | 2018-07-24 08:54 | NUR ---
patient compliant with medical care and medication regime this morning.
[2018-07-24 08:56] VITALS: BP 136/46
--- NOTE | 2018-07-24 09:30 | NUR ---
Patient's belongings went through that were in the patients room, written down in the belongings check, and placed/locked in the contraband cabinets. All items that pose as a safety risk for the patient was taken away and remains in the contraband cabinet.
[2018-07-24] MEDS: LORAZEPAM 1 MG TABLET PO PRN (11:26)
[2018-07-24 12:18] VITALS: BP 102/62
[2018-07-24 16:51] VITALS: BP 108/53
--- NOTE | 2018-07-24 18:50 | NUR ---
PATIENT COMPLIANT WITH MEDICAL CARE, MEDICATION REGIME THROUGHOUT SHIFT. 1:1 SITTER AT BEDSIDE FOR SAFETY. PATIENT DENIES ANY SUICIDAL IDEATIONS. PATIENT DENIES THOUGHTS OF HARMING SELF OR HARMING OTHERS. STABLE CONDITION. NO SIGNS OF DISTRESS. WILL CONTINUE TO MONITOR UNTIL END OF SHIFT.
--- NOTE | 2018-07-24 21:00 | NUR ---
Patient wake & alert no SOB denies any pain, requesting for another dinner tray. Needs provided, patient tolerated 100% meal tray. Routine night p.o meds given. Safety observed with 1:1 sitter in room.
[2018-07-24] MEDS: QUETIAPINE FUMARATE 100 MG TABLET PO SCH (21:02)
[2018-07-24 21:40] VITALS: BP 107/47
--- NOTE | 2018-07-25 | NUR ---
RECEIVED PATIENT FROM RN. PATIENT IS ASLEEP IN BED, WITH 1:1 SITTER AT BEDSIDE. WILL CONTINUE TO MONITOR AND ASSESS.
[2018-07-25 04:15] VITALS: BP 100/47
[2018-07-25] MEDS: PANTOPRAZOLE SODIUM 40 MG TABLET.DR PO SCH (06:26)
[2018-07-25] MEDS: LEVOTHYROXINE SODIUM 125 MCG TABLET PO SCH (06:27)
--- NOTE | 2018-07-25 06:50 | NUR ---
PATIENT ASLEEP IN BED. EASILY AROUSABLE. SITTER AT BEDSIDE. SLEPT WELL.
[2018-07-25] MEDS: FOLIC ACID 1 MG TABLET PO SCH (09:15)
[2018-07-25] MEDS: THIAMINE HCL 100 MG TABLET PO SCH (09:15)
[2018-07-25] MEDS: CYANOCOBALAMIN 1,000 MCG TABLET PO SCH (09:15)
[2018-07-25] MEDS: MULTIVITAMINS,THERAPEUTIC TABLET PO SCH (09:16)
[2018-07-25] MEDS: QUETIAPINE FUMARATE 25 MG TABLET PO SCH ×2 (09:18→17:00)
[2018-07-25] MEDS: NICOTINE 14 MG/24HR PATCH TD SCH (09:21)
[2018-07-25] MEDS: DIVALPROEX 250 MG TABLET.DR PO SCH ×3 (09:23→17:00)
[2018-07-25 10:45] VITALS: BP 103/28
[2018-07-25] MEDS: ACETAMINOPHEN 325 MG TABLET PO PRN (11:06)
[2018-07-25 11:15] VITALS: BP 84/26
[2018-07-25 11:31] LABS: THYROID STIMULATING HORMONE 19.935 mIU/mL (0.358-3.740)
--- NOTE | 2018-07-25 18:00 | NUR ---
REPORT CALLED TO JACOB GAR AT [facility].
--- NOTE | 2018-07-25 20:00 | NUR ---
received patient in bed with sitter at bedside. awake and alert. no signs of acute distress. will be picked up by EMT and transferred to [facility]. Will continue to monitor.
[2018-07-25 20:21] VITALS: BP 93/48
[2018-07-25] MEDS: QUETIAPINE FUMARATE 100 MG TABLET PO SCH (21:00)
[2018-07-25] MEDS: HYDROCODONE/APAP 5-325MG TABLET PO PRN (21:00)
--- NOTE | 2018-07-25 21:10 | NUR ---
Discharge note: Patient was picked up by EMT and report was given. Patient left in stable condition with all belongings and discharge papers given.
[2018-07-26] MEDS ORDERED: LEVO125T8 PO (13:55)
[2018-07-26] MEDS ORDERED: THIA100T13 PO (13:55)
[2018-07-26] MEDS ORDERED: LORA-259 PO (13:55)
[2018-07-26] MEDS ORDERED: CYAN10009 PO (13:55)
[2018-07-26] MEDS ORDERED: QUET25TA PO (13:55)
[2018-07-26] MEDS ORDERED: FOLI1TAB16 PO (13:55)
[2018-07-26] MEDS ORDERED: NICO-671 TD (13:55)
[2018-07-26] MEDS ORDERED: DIVA250T4 PO (13:55)
[2018-07-26] MEDS ORDERED: QUET100T PO (13:55)
== END 2018-07-25 21:16 | DRG 817 ==
LOC: ER 22:47 → CCU 07-18 01:57 → TELE 07-18 18:30 → MED 07-20 09:45
PROVIDERS: ADMIT Hospitalist; ATTEND Hospitalist
DX: T42.4X2A Poisoning by benzodiazepines, intentional self-harm, initial encounter (principal); G92 Toxic encephalopathy; T51.0X2A Toxic effect of ethanol, intentional self-harm, initial encounter; Y92.89 Other specified places as the place of occurrence of the external cause; Y90.6 Blood alcohol level of 120-199 mg/100 ml; F10.229 Alcohol dependence with intoxication, unspecified; Z88.0 Allergy status to penicillin; Z59.0 Homelessness; F19.10 Other psychoactive substance abuse, uncomplicated; E87.6 Hypokalemia; E03.9 Hypothyroidism, unspecified; E04.9 Nontoxic goiter, unspecified; Z91.5 Personal history of self-harm; F13.159 Sedative, hypnotic or anxiolytic abuse with sedative, hypnotic or anxiolytic-induced psychotic disorder, unspecified; F25.0 Schizoaffective disorder, bipolar type; F32.9 Major depressive disorder, single episode, unspecified; D75.89 Other specified diseases of blood and blood-forming organs
CPT/HCPCS: 36415; 71045; 80164; 80307; 83735; 84100; 84443; 84481; 85025; 85730; 93005; A4663; C1758; C9113; G0378; G0480; G0480-TC; J1815; J2060; J2358; J3411; J3475; J3480; J3490; J7030; J7040; J7042; J7050; J7060